=== PATIENT | male | born 1975 | race Two or more races ===

== ENCOUNTER 2021-04-22 10:42 | Emergency (ER) | payer MEDICARE, OTHER ==
[~2021-04-22] VITALS: Ht 167.6 cm; Wt 91.3 kg
[~2021-04-22 10:42] MED LIST: ALBU18HF INH; ASCO500T9 PO; CHOL500045 PO; DEXA6TAB6 PO; LISI-167 PO; METF500T PO; THIA100T67 PO; ZINC220C7 PO
[2021-04-22] MEDS ORDERED: MORPHINE SULFATE 4 MG/ML, 1ML IVPush PRN (11:30)
[2021-04-22] MEDS ORDERED: SODIUM CHLORIDE FLUSH 10ML SYR IVF ONE (11:30)
[2021-04-22] MEDS ORDERED: ONDANSETRON 2MG/ML, 2ML IVPush ONE (11:30)
[2021-04-22] MEDS ORDERED: MORPHINE SULFATE 4 MG/ML, 1ML ONE (11:34)
[2021-04-22] MEDS ORDERED: ONDANSETRON 2MG/ML, 2ML ONE (11:34)
[2021-04-22 11:49] LABS: BASOPHILS % (AUTO) 0 % (0-1); EOSINOPHILS % (AUTO) 0 % (1-7); LYMPHOCYTES % (AUTO) 3 % (22-44); MEAN CORPUSCULAR HEMOGLOBIN 28.3 pg (27.5-34.5); MEAN PLATELET VOLUME 8.9 fL (7.4-10.4); MONOCYTES % (AUTO) 12 % (2-9); NEUTROPHILS % (AUTO) 85 % (42-75); PLATELET COUNT 229 x10^3/uL (130-400); RED BLOOD COUNT 5.68 x10^6/uL (4.38-5.82); RED CELL DISTRIBUTION WIDTH 14.2 % (9.4-14.8)
--- NOTE | 2021-04-22 11:52 | NUR ---
PT CAME IN CO NVD THAT STARTED THIS MORNING. PT ALSO CO OF DIFFUSE ABD PAIN. PT DENIES BLACK STOOL. PT MEDICATED PER NOV. RESTING IN [facility]. BEDSIDE
[2021-04-22 11:53] VITALS: BP 134/76
[2021-04-22 11:59] LABS: ALBUMIN 3.5 g/dL (3.4-5.0); ANION GAP 4 mmol/L (5-15); CALCIUM 9.6 mg/dL (8.5-10.1); CHLORIDE 103 mmol/L (98-107)
[2021-04-22 12:04] LABS: ALANINE AMINOTRANSFERASE 23 U/L (12-78); ALKALINE PHOSPHATASE 57 U/L (45-117); BILIRUBIN,TOTAL 0.5 mg/dL (0.2-1.0); CREATININE 1.18 mg/dL (0.7-1.3); TOTAL PROTEIN 7.6 g/dL (6.4-8.2)
[2021-04-22] MEDS ORDERED: OMNIPAQUE 350 MG/ML, 100ML BOTTLE ONE ×2 (12:33→12:34)
[2021-04-22 12:56] LABS: MICROSCOPIC INDICATED
== END 2021-04-22 13:57 | disposition home or self-care (01) ==
LOC: ED 11:30
DX: R10.84 Generalized abdominal pain (principal); R11.2 Nausea with vomiting, unspecified; R19.7 Diarrhea, unspecified; I45.19 Other right bundle-branch block; E11.9 Type 2 diabetes mellitus without complications; Z87.891 Personal history of nicotine dependence
CPT/HCPCS: 36415; 74177; 80053; 81001; 83690; 85025; 87086; 93005; 96374; 96375; 99285; J2270; J2405; Q9967